=== PATIENT | male | born 1955 | race Caucasian/White ===

== ENCOUNTER → 2018-04-25 | Outpatient (CLI) | payer MEDICARE ==
[2018-04-25 10:57] LABS: BUN/CREATININE RATIO 18; CREATININE SERUM 0.95 MG/DL (0.60-1.30); GFR ESTIMATED > 60
[2018-04-25 11:41] LABS: ABG BASE EXCESS 1.7 MMOL/L (-2.5-2.5); ABG OXYGEN SATURATION 93 % (94-100); ABG PCO2 44 MMHG (35-45); ABG PH 7.39 (7.37-7.43); ABG PO2 78 MMHG (79-93); ABG TCO2 27.4 MMOL/L (21.0-31.0)
[2018-04-25 11:42] LABS: ALLENS TEST YES-POS; INSPIRED O2 ROOM AIR; VENTILATOR NO
== END ==
LOC: RT 10:11
PROVIDERS: ATTEND Nurse Practitioner Family
DX: J45.909 Unspecified asthma, uncomplicated (principal); G47.10 Hypersomnia, unspecified; R06.00 Dyspnea, unspecified
CPT/HCPCS: 36415; 36600; 82565; 82805; 84520